=== PATIENT | female | born 1990 | race Caucasian/White ===

== ENCOUNTER 2018-02-23 18:27 | Emergency (ER) | payer BC ==
--- NOTE | 2018-02-23 18:53 | EDPHY ---
H & P Time Seen by Provider: 02/23/18 19:05 HPI/ROS: CHIEF COMPLAINT: LSD HISTORY OF PRESENT ILLNESS: Patient is a 27-year-old female who reports using LSD. After taking 3 drops of LSD she was wondering about. She went to someone' s house who called 911. The patient has no complaints. She denies any other drug ingestion. She denies alcohol use. She has no headache. No neck pain. No chest pain or shortness of breath. No abdominal pain. No nausea vomiting. REVIEW OF SYSTEMS: My complete review of systems is negative except as mentioned in the HPI. Past Medical/Surgical History: Denies Physical Exam: Vitals noted GENERAL: Well-appearing, in no acute distress, alert. HEENT: Dilated pupils bilaterally, normal pharynx, no signs of dehydration. NECK: No thyromegaly, no lymphadenopathy, supple. RESPIRATORY: Clear to auscultation bilaterally, no rales, rhonchi or wheezing. CVS: Regular rate and rhythm, no rubs, murmurs, or gallops. ABDOMEN: Soft, nontender, nondistended, no organomegaly. BACK: Normal to inspection, no CVA tenderness. SKIN: Normal color, no rash, warm, dry. No pallor. EXTREMITIES: No pedal edema, no calf tenderness, no Homans sign or cords, no joint swelling. NEURO/PSYCH: Alert and oriented x3, pleasant and happy appearing, normal motor sensory exam. No obvious cranial nerve deficit. Constitutional: Initial Vital Signs Temperature (C) 36.6 C 02/23/18 19:12 Heart Rate 102 H 02/23/18 19:12 Respiratory Rate 18 02/23/18 19:12 Blood Pressure 115/66 02/23/18 19:12 O2 Sat (%) 98 02/23/18 19:12 O2 Delivery Mode Room Air Allergies/Adverse Reactions: No Known Allergies Allergy (Unverified 02/23/18 19:05) Home Medications: Medication Instructions Recorded NK [No Known Home Meds] 02/23/18 Medical Decision Making ED Course/Re-evaluation: Patient presents to the emergency department via EMS after reportedly using LSD. Patient has no complaints at this time. She is oriented x3. I rechecked the patient on numerous occasions. She was stable throughout her stay. 2114: Patient has no complaints. She is alert and oriented x3. Patient contacted her friend who was not intoxicated and. Normal. She was discharged home. Differential Diagnosis: My differential includes but is not limited to LSD ingestion, closed-head injury , alcohol intoxication, electrolyte abnormality, sugar abnormality Departure - Departure Disposition: Home, Routine, Self-Care Clinical Impression: LSD overdose Qualifiers: Encounter type: initial encounter Injury intent: undetermined intent Qualified Code(s): T40.8X4A - Poisoning by lysergide [LSD], undetermined, initial encounter Condition: Good Instructions: Polysubstance Abuse (ED) Additional Instructions: Return witH any other complaints or concerns. Referrals: Lukasz Downey MD [[facility] Primary Care Provider] - 2-3 days without fail
[2018-02-23 21:31] VITALS: BP 122/80
== END 2018-02-23 21:29 | disposition home or self-care (01) ==
DX: T40.8X4A Poisoning by lysergide [LSD], undetermined, initial encounter (principal)